=== PATIENT | male | born 1980 | race African-American/Black ===

== ENCOUNTER 2018-05-10 04:09 | Emergency (ER) | payer SELFPAY ==
[~2018-05-10] VITALS: Ht 172.7 cm; Wt 75.0 kg
[2018-05-10] MEDS ORDERED: SODIUM CHLORIDE 0.9% 1,000 ML IV ONE (04:36)
[2018-05-10] MEDS ORDERED: DIPHENHYDRAMINE 50MG/ML VIAL IM STA (04:36)
[2018-05-10] MEDS ORDERED: HALOPERIDOL LACTATE 5MG/ML VIAL IM STA (04:36)
[2018-05-10] MEDS ORDERED: LORAZEPAM 2MG/ML CPJ IM ONE (04:45)
[2018-05-10 05:51] LABS: BASOPHILS % 1.1 % (0.0-2.0); EOSINOPHILS % 0.4 % (0.0-5.0); HEMATOCRIT. 39.8 % (42.0-52.0); LYMPHOCYTES % 30.1 % (20.0-50.0); MEAN CORPUSCULAR HEMOGLOBIN 32.9 pg (28.0-32.0); MEAN CORPUSCULAR VOLUME 93.9 fL (80.0-94.0); MEAN PLATELET VOLUME 9.2 fl (7.4-10.4); MONOCYTES % 8.4 % (2.0-8.0); PLATELET 187 x1000/uL (130-400); RED BLOOD CELL COUNT 4.24 mill/uL (4.7-6.1); RED CELL DISTRIBUTION WIDTH 12.8 % (11.6-14.6)
[2018-05-10 05:57] LABS: INR 1.2
[2018-05-10 05:59] LABS: CHLORIDE 109 mEq/L (98-107)
[2018-05-10 06:04] LABS: AMMONIA 31 uMol/L (<32); ETHANOL BLOOD < 10 mg/dL
[2018-05-10 06:08] LABS: CREATINE KINASE 709 IU/L (39-308)
[2018-05-10 06:35] LABS: CLARITY URINE CLEAR (CLEAR); COLOR URINE DARK YELLOW (YELLOW); KETONES URINE 2+ (NEGATIVE); LEUKOCYTE ESTERASE URINE NEGATIVE (NEGATIVE); NITRITE URINE NEGATIVE (NEGATIVE); OCCULT BLOOD URINE 2+ (NEGATIVE); PH URINE 5.5 (4.5-8.0); PROTEIN URINE 1+ (NEGATIVE); SPECIFIC GRAVITY URINE 1.036 (1.005-1.030)
[2018-05-10 06:53] LABS: *AMPHETAMINES SCREEN URINE PRESUMTIVE POSITIVE (NEGATIVE); *BARBITURATES SCREEN URINE NEGATIVE (NEGATIVE); CANNABINOID URINE SCREEN PRESUMTIVE POSITIVE (NEGATIVE); METHADONE URINE SCREEN NEGATIVE (NEGATIVE); OPIATES URINE SCREEN NEGATIVE (NEGATIVE); PHENCYCLIDINE URINE SCREEN NEGATIVE (NEGATIVE)
[2018-05-10 06:54] LABS: *BENZODIAZEPINES SCREEN URINE NEGATIVE (NEGATIVE); *COCAINE SCREEN URINE NEGATIVE (NEGATIVE)
[2018-05-10 11:47] VITALS: BP 110/60
== END 2018-05-10 13:00 | disposition home or self-care (01) ==
LOC: ER 05:22
DX: R45.1 Restlessness and agitation (principal); F41.9 Anxiety disorder, unspecified; Z78.1 Physical restraint status; R00.0 Tachycardia, unspecified; H57.04 Mydriasis; R61 Generalized hyperhidrosis
CPT/HCPCS: 36415; 70450; 71045; 80053; 80305; 80307; 80329; 81003; 82140; 82550; 83605; 83690; 84443; 85025; 85610; 93005; 96360; 96372; 99285; G0482; J1200; J1630; J2060; J7030; Z7610

== ENCOUNTER 2018-05-15 12:11 | Emergency (ER) | payer OTHER ==
[~2018-05-15] VITALS: Ht 172.7 cm; Wt 74.0 kg
[2018-05-15 12:39] VITALS: BP 140/91
== END 2018-05-15 13:15 | disposition home or self-care (01) ==
LOC: ER 12:11
DX: F15.129 Other stimulant abuse with intoxication, unspecified (principal)
CPT/HCPCS: 99283